=== PATIENT | male | born 1995 | race Caucasian/White ===

== ENCOUNTER 2022-12-17 18:14 | Emergency (ER) | payer OTHER, BC ==
[2022-12-17 18:23] VITALS: BP 121/68; PULSE 65; RESP 18; TEMP 97.9; BMI 26.4
[2022-12-17] MEDS ORDERED: DIPHTH,PERTUSS(ACELL),TET 0.5 ML DISP.SYRIN IM ONE ×2 (19:50→20:06)
[2022-12-17] MEDS ORDERED: AMOX TR/POT CLAV 875MG/125MG TABLETS (FP) PO ONE (19:51)
[2022-12-17] MEDS ORDERED: AMOX TR/POT CLAV 875MG/125MG TABLETS (FP) ONE (20:06)
== END 2022-12-17 20:15 | disposition home or self-care (01) ==
LOC: JER 18:14 → JERFT 18:14
PROC: 3E0237Z Introduction of Electrolytic and Water Balance Substance into Muscle, Percutaneous Approach (ICD-10-PCS; principal; 2022-12-17)
DX: S61.512A Laceration without foreign body of left wrist, initial encounter (principal); W29.8XXA Contact with other powered hand tools and household machinery, initial encounter
CPT/HCPCS: 90715; 99284-25